=== PATIENT | female | born 1995 | race Two or more races ===

== ENCOUNTER 2023-07-31 17:24 | Emergency (ER) | payer OTHER ==
[~2023-07-31] VITALS: Ht 175.3 cm; Wt 126.0 kg
[2023-07-31 21:01] LABS: Alanine Aminotransferase 20 U/L (7-40); Albumin 4.7 g/dL (3.2-4.8); Alkaline Phosphatase 41 U/L (46-116); Anion Gap 6 (5-15); Aspartate Aminotransferase 24 U/L (13-40); BUN/Creatinine Ratio 13.7 (10.0-20.0); Bilirubin, Total 1.7 mg/dL (0.2-1.0); Blood Urea Nitrogen 10 mg/dL (9-23); Calcium 9.8 mg/dL (8.5-10.1); Carbon Dioxide 27 mmol/L (20-30); Chloride 103 mmol/L (98-107); Glucose 88 mg/dL (74-106); Sodium 136 mmol/L (136-145); Total Protein 7.5 g/dL (5.7-8.2)
[2023-07-31 21:24] LABS: Basophils # (auto) 0.1 10 ^3/uL (0-0.2); Basophils % (auto) 0.6 % (0.0-2.0); Eosinophils # (auto) 0 10 ^3/uL (0-0.8); Eosinophils % (auto) 0.5 % (0.0-7.0); Hematocrit 44.3 % (36.0-46.0); Lymphocytes # (auto) 1.1 10 ^3/uL (0.4-5.4); Lymphocytes % (auto) 11.7 % (10.0-50.0); Mean Corpuscular Hemoglobin 31.6 pg (28.0-32.0); Mean Corpuscular Hgb Conc. 33.9 g/dL (32.0-36.0); Mean Corpuscular Volume 93.5 fL (80.0-100.0); Monocytes # (auto) 0.6 10 ^3/uL (0-1.3); Monocytes % (auto) 5.8 % (0.0-12.0); Neutrophils # (auto) 7.9 10 ^3/uL (1.6-8.6); Neutrophils % (auto) 81.4 % (37.0-80.0); Nucleated Red Blood Cells % 0.1 %; Red Blood Cells 4.74 10^6/uL (4.0-5.20); Red Cell Distribution Width 13.1 % (11.8-14.3); White Blood Cell 9.7 10^3/uL (4.4-10.8)
[2023-07-31 22:15] LABS: Amphetamine Screen, Urine Neg (NEGATIVE)
[2023-07-31 22:16] LABS: Barbiturate Scree,Urine Neg (NEGATIVE); Benzodiazephine Screen, Urine Neg (NEGATIVE); Cannabinoid Screen, Urine Pos (NEGATIVE); Cocaine Screen, Urine Neg (NEGATIVE); Opiate Scree,Urine Neg (NEGATIVE); Phencyclidine Screen, Urine Neg (NEGATIVE)
[2023-07-31 22:21] LABS: Urine Bacteria NONE SEEN /hpf (None Seen); Urine Blood Negative /uL (Negative); Urine Clarity Clear (Clear); Urine Color Colorless (Yellow); Urine Protein, UAD Negative (Negative); Urine Specific Gravity 1.017 (1.001-1.035); Urine Urobilinogen Normal (Negative); Urine WBC 4 /hpf (0 - 5); Urine pH 5.5 (5.0-8.0)
[2023-07-31] MEDS ORDERED: IBUP-1455 PO (22:58)
[2023-07-31] MEDS ORDERED: ACET-1304 PO (22:58)
[2023-07-31] MEDS ORDERED: BAC09TP TOP (22:58)
[2023-07-31] MEDS ORDERED: CEPH500C PO (22:58)
[2023-07-31] MEDS: LIDOCAINE 1% HCL (LOCAL ANESTH.) INJ 20ML MDV ID ONE (23:03)
[2023-07-31] MEDS: ONDANSETRON HCL 4 MG/2 ML VIAL IV ONE (23:03)
[2023-07-31] MEDS: HYDROcodone-ACET 5/325MG TAB PO ONE (23:03)
[2023-07-31] MEDS: LIDOCAINE 2% TOPICAL JELLY 5 ML URJT TOP ONE (23:03)
[2023-07-31 23:05] VITALS: BP 115/61; TEMP 97.9
[2023-07-31 23:10] VITALS: PULSE 56; RESP 16; O2SAT 99
== END 2023-07-31 23:11 | disposition home or self-care (01) ==
LOC: ER 17:24 → EDBD 17:24 → EDUNIT# 17:24 → ER 23:11
DX: S01.01XA Laceration without foreign body of scalp, initial encounter (principal); R10.2 Pelvic and perineal pain; N39.0 Urinary tract infection, site not specified; R55 Syncope and collapse; F15.90 Other stimulant use, unspecified, uncomplicated; Z79.899 Other long term (current) drug therapy; W22.8XXA Striking against or struck by other objects, initial encounter; Y93.89 Activity, other specified; Y92.89 Other specified places as the place of occurrence of the external cause; Y99.8 Other external cause status
CPT/HCPCS: 12002; 36415; 70450; 72125; 80053; 80307; 80320; 81001; 84484; 84702; 85025; 93005